=== PATIENT | female | born 1930 | race Caucasian/White ===

== ENCOUNTER 2018-01-10 04:48 | Inpatient (IN) | payer MEDICARE, BC ==
[2018-01-10] MEDS ORDERED: Ondansetron ODT 4 MG TAB ONE ×2 (05:26→11:42)
[2018-01-10] MEDS ORDERED: Morphine 4 MG/ML VIAL ONE ×2 (05:26→08:04)
[2018-01-10 05:51] LABS: #Lymphocytes 0.5 thou/uL (1.20-3.40); #Monocytes 0.3 thou/uL (0.11-0.59); #Neutrophils 7.3 thou/uL (1.40-6.50); %Basophils 0.2 % (0.0-1.0); %Lymphocytes 5.9 % (21.0-51.0); %Monocytes 3.7 % (0.0-10.0); %Neutrophils 90.1 % (42.0-75.0); Hemoglobin 12.9 g/dL (12.0-16.0); Mean Corpuscular Hemoglobin 33.3 pg (27.0-31.0); Mean Platelet Volume 7.9 fL (7.4-10.4); Platelet Count 243 thou/uL (130-400); RBC Distribution Width 12.1 % (11.5-14.5); Red Blood Cell (RBC) Count 3.87 mill/uL (4.20-5.40); White Blood Cell (WBC) Count 8.1 thou/uL (4.8-10.8)
[2018-01-10 06:15] LABS: ALT (SGPT) 10 U/L (8-55); AST (SGOT) 15 U/L (5-34); Albumin 4.1 g/dL (3.4-4.8); Alkaline Phosphatase 97 U/L (40-150); Anion Gap 16 mmol/L (10-20); BUN (Urea Nitrogen) 13 mg/dL (9.8-20.1); Bilirubin, Total 1.3 mg/dL (0.2-1.2); Calc. Creatinine Clearance 0 mL/min (70-130); Calcium 9.7 mg/dL (7.8-10.44); Carbon Dioxide 23 mmol/L (23-31); Chloride 104 mmol/L (98-107); Estimated GFR-MDRD 78; Globulin 3.1 g/dL (2.4-3.5); Glucose 172 mg/dL (83-110); Potassium 3.8 mmol/L (3.5-5.1); Protein, Total 7.2 g/dL (6.0-8.3); Sodium 139 mmol/L (136-145)
[2018-01-10] MEDS ORDERED: Ondansetron HCl/PF 4 MG/2 ML Vial ONE (06:59)
[2018-01-10] MEDS ORDERED: Glycopyrrolate 0.2 MG/ML 5 ML SYRINGE ONE (06:59)
[2018-01-10] MEDS ORDERED: Succinylcholine Chloride 20 MG/ML 10 ml SYRINGE FS ONE (06:59)
[2018-01-10] MEDS ORDERED: Lidocaine 1% PF 5 ML VIAL ONE (06:59)
[2018-01-10] MEDS ORDERED: PROPOFOL 200 MG/20 ML VIAL ONE (06:59)
[2018-01-10] MEDS ORDERED: Metoprolol Tartrate 5 MG/5 ML VIAL ONE (06:59)
[2018-01-10] MEDS ORDERED: ePHEDrine/0.9% NaCl/PF SYRINGE 50 mg/10 ml ONE (06:59)
[2018-01-10 07:50] LABS: CKMB 1.3 ng/mL (0-6.6); Troponin I Less than 0.010 ng/mL (< 0.028)
[2018-01-10] MEDS ORDERED: metroNIDAZOLE 500 MG/100 ML BAG ONE (08:04)
[2018-01-10 08:22] LABS: PTT 27.5 SEC (22.9-36.1)
[2018-01-10 08:23] LABS: INR-International Normal Ratio 1.1; Prothrombin Time 14.1 SEC (12.0-14.7)
[2018-01-10 09:22] LABS: Bilirubin Negative (Negative); Blood, Urine Negative (Negative); Clarity CLEAR (Clear); Glucose, Urine (Dipstick) Negative (Negative); Leukocyte Trace (Negative); Nitrite Positive (Negative); Protein, Urine (Dipstick) Negative (Neg-Trace); Specific Gravity, Urine 1.016 (1.002-1.036); Urobilinogen 0.2 mg/dL (0.2-1.0); pH, Urine 7.5 (5.0-9.0)
[2018-01-10 09:25] LABS: Bacteria/HPF 4+ HPF (None Seen); Hyaline Casts/LPF 0-3 HYALINE CAST LPF (0-3 Hyaline); Pathc Cast-AUWi Flag 0.14 (0-2.49); RBC/HPF 0-3 HPF (0-3); Squamous Epithelial None Seen HPF (0-3); WBC/HPF 0-3 HPF (0-3)
[2018-01-10 09:44] LABS: Lactic Acid 2.6 mmol/L (0.5-2.2)
[2018-01-10] MEDS ORDERED: Acetaminophen 1,000 MG in Premix Bag 1 BAG IVPB ONE (09:45)
[2018-01-10] MEDS ORDERED: Ketorolac Tromethamine 30 MG/ML VIAL ONE (09:53)
[2018-01-10] MEDS ORDERED: Levofloxacin 500 mg/D5W 100 ml Premix Bag ONE (11:41)
[2018-01-10] MEDS ORDERED: Scopolamine 1.5 mg/72 hour Patch ONE (11:41)
[2018-01-10] MEDS ORDERED: Metoclopramide HCl 10 MG/2 ML VIAL ONE (11:41)
[2018-01-10] MEDS ORDERED: Famotidine/PF 20 mg/2ml Vial ONE ×2 (11:42→13:59)
--- NOTE | 2018-01-10 11:47 | HP ---
HISTORY OF PRESENT ILLNESS: Candice Faustin is an 87-year-old female independently ambulatory with a wa lker, lives in [place], experienced acute onset of incarcerated left inguinal hernia with pain and nausea, presented to the emergency room by ambulance. She was evaluated there and a CAT scan obtaine d revealing an incarcerated left femoral hernia that could not be reduced. There is not a great amou nt of bowel dilatation associated with this, but a small amount of air fluid levels in the small waylon l and the incarcerated left femoral hernia. The plan is to reduce this robotically and repair roboti maureen, possible laparotomy, bowel resection as indicated. She understands risks and benefits and con sents. ALLERGIES: PENICILLIN. TOBACCO: None. ALCOHOL: None. MEDICATIONS: Synthroid, allergy medications. PAST SURGICAL HISTORY: Osteoarthritis, asthma, left total knee replacement, left shoulder surgery, l aparoscopic cholecystectomy, total abdominal hysterectomy, bilateral salpingo-oophorectomy. PAST MEDICAL HISTORY: Osteoarthritis, hypothyroidism treated medically. REVIEW OF SYSTEMS: Ten point noncontributory. The patient reports having had multiple colonoscopies that were normal in the past. She has had a cardiac stress test 10 years ago that was normal. She denies any cardiac history. PHYSICAL EXAMINATION: VITAL SIGNS: Blood pressure 183/93, 79, 20, 97.9 degrees. HEENT: Unremarkable. LUNGS: Clear to auscultation. CARDIAC: Regular rate and rhythm without murmur or gallop. ABDOMEN: Soft, nontender, nondistended. Left inguinal hernia that I cannot reduce. EXTREMITIES: Unremarkable. LABORATORY: White count 8, hemoglobin 12.9. Basic metabolic profile normal. ASSESSMENT AND PLAN: Incarcerated left inguinal/femoral hernia. Plan robotic repair, possible open repair, possibly using mesh. She understands risks and benefits and consents. She consents to lapar otomy, bowel resection as indicated.
--- NOTE | 2018-01-10 12:21 | CT ---
PRELIMINARY REPORT/[facility]/EMERGENTY AFTER-HOURS PROCEDURE CT Abdomen and Pelvis With Intravenous Contrast EXAM DATE/TIME: Exam ordered 01/10/2018 6:35 AM CLINICAL HISTORY: 87 years old, female; Pain; Abdominal pain; Acute; Prior surgery; Surgery date: 6+ months; Surgery ty pe: HX of clifford and hyst; Additional info: 87 yo f presents to ed with abd pain. Pt reports pain star teetee around midnight and is "all over" her abdomen. Pt reports no history of such pain. Pt reports lump on lower abdomen "just showed up". TECHNIQUE: Axial computed tomography images of the abdomen and pelvis with intravenous contrast. All CT scans at this facility use one or more dose reduction techniques, viz.: automated exposure control; ma/kV adj ustment per patient size (including targeted exams where dose is matched to indication; i.e. head); or iterative reconstruction technique. Coronal reformatted images were created and reviewed. CONTRAST: 100 mL of isovue 370 administered intravenously. COMPARISON: No relevant prior studies available. FINDINGS: Lung bases: There is subpleural atelectasis of the dependent portions of the lungs. ABDOMEN: Liver: There are no focal liver lesions identified. Gallbladder and bile ducts: There has been a cholecystectomy. No ductal dilation. Pancreas: The pancreas appears normal. No ductal dilation. Spleen: The spleen demonstrates punctate calcifications, consistent with remote granulomatous organis m exposure. Adrenals: The adrenal glands are normal. Kidneys and ureters: There are multiple simple renal cysts. No hydronephrosis. Stomach and bowel: There is a LEFT femoral hernia containing a 4 cm dilated loop of bowel. The stomac h is normal. Moderate diverticulosis is present in the sigmoid and descending colon. No definite evid ence of bowel obstruction. No mucosal thickening. PELVIS: Appendix: No findings to suggest acute appendicitis. Bladder: The bladder is moderately distended. Reproductive: The uterus is not visualized, and may be atrophic or surgically absent. ABDOMEN and PELVIS: Intraperitoneal space: Normal. No free air. No significant fluid collection. Bones/joints: Bones are osteopenic. No acute fracture. No dislocation. Soft tissues: See above. Vasculature: Normal. No abdominal aortic aneurysm. Lymph nodes: Normal. No enlarged lymph nodes. IMPRESSION: There is a LEFT femoral hernia containing a 4 cm dilated loop of bowel. Thank you for allowing us to participate in the care of your patient. Dictated and Authenticated by: Ayo Li MD 01/10/2018 7:47 AM Central Time ([place] & [place]) FINAL REPORT EMERGENT AFTER HOURS CT ABDOMEN AND PELVIS WITH IV CONTRAST: DATE: 01/10/18. HISTORY: Generalized abdominal pain. FINDINGS/IMPRESSION: 1. Left femoral hernia containing a single dilated fluid-filled loop of small bowel. No resultant b owel obstruction is seen at this time. There is mild stranding present adjacent to the hernia. 2. Post cholecystectomy changes. 3. Bilateral renal cysts, the largest cyst involving the left kidney measuring 8.5 cm. 4. Colonic diverticulosis. 5. Hysterectomy. 6. Evidence of prior granulomatous disease. 7. Small hiatal hernia. 8. Degenerative changes in the spine. 9. No CT evidence of appendicitis. 10. Findings are in agreement with the preliminary report by [facility]. POS: [facility]
[2018-01-10] MEDS ORDERED: Bupivacaine/Epinephrine 0.25% 30 ML VIAL ONE (13:52)
[2018-01-10] MEDS ORDERED: ISOVUE-370 76%-LOCM 1 ML ONE (13:55)
[2018-01-10] MEDS ORDERED: Fentanyl 250 MCG/5 ML VIAL ONE (13:59)
[2018-01-10] MEDS ORDERED: Fentanyl 100 MCG/2 ML VIAL ONE (13:59)
[2018-01-10] MEDS ORDERED: Ondansetron HCl/PF 4 MG/2 ML Vial IVP PRN (15:54)
[2018-01-10] MEDS ORDERED: SUGAMMADEX SODIUM 500 MG/5 ML VIAL ONE (16:02)
[2018-01-10] MEDS ORDERED: Morphine 4 MG/ML VIAL SLOW IVP PRN (16:07)
[2018-01-10] MEDS ORDERED: Dextrose 50% Abboject 50 ML SYRINGE SLOW IVP PRN (16:07)
[2018-01-10] MEDS ORDERED: Ondansetron ODT 4 MG TAB PO PRN ×3 (16:07→22:43)
[2018-01-10] MEDS ORDERED: Dextrose 5% in Water 1,000 ML IV PRN (16:07)
[2018-01-10] MEDS ORDERED: hydrALAZINE 20 MG/ML VIAL SLOW IVP PRN (16:07)
--- NOTE | 2018-01-10 17:53 | RAD ---
ABDOMEN ONE VIEW: HISTORY: NG tube placement. COMPARISON: None. FINDINGS: One view abdomen demonstrates a nasogastric tube in the left upper quadrant, presumed to be in the st omach. Bowel gas pattern is nonspecific. Scattered fecal material is noted. There appear to be stoney gical clips in the right upper quadrant due to a previous cholecystectomy. There is a catheter/tubin g material projecting over the right hemipelvis. IMPRESSION: Nasogastric tube with the distal tip in the stomach. POS: [facility]
[2018-01-10] MEDS: Acetaminophen 1,000 MG in Premix Bag 1 BAG IVPB SCH (18:30)
[2018-01-10] MEDS: Ketorolac Tromethamine 30 MG/ML VIAL IVP SCH (18:39)
[2018-01-10] MEDS: Lactated Ringer's 1,000 ML IV SCH (21:04)
[2018-01-10] MEDS: Enoxaparin Sodium 40 MG/0.4 ML SYRINGE SC SCH (21:50)
[2018-01-10 22:25] VITALS: BMI 36.6
[2018-01-10] MEDS ORDERED: Ondansetron ODT 8 MG TAB PO PRN (22:30)
[2018-01-10] MEDS ORDERED: Metoclopramide HCl 10 MG/2 ML VIAL IVP PRN (22:30)
[2018-01-10] MEDS ORDERED: Ondansetron ODT 8 MG TAB SL PRN (22:30)
[2018-01-11] MEDS: Ketorolac Tromethamine 30 MG/ML VIAL IVP SCH ×5 (00:50→23:06)
[2018-01-11] MEDS: Acetaminophen 1,000 MG in Premix Bag 1 BAG IVPB SCH ×4 (00:51→18:07)
[2018-01-11] MEDS: Lactated Ringer's 1,000 ML IV SCH ×4 (01:22→21:33)
--- NOTE | 2018-01-11 01:28 | OP ---
DATE OF PROCEDURE: 01/10/2018 PREOPERATIVE DIAGNOSIS: Incarcerated left femoral hernia. POSTOPERATIVE DIAGNOSIS: Strangulated left inguinal hernia with bowel obstruction. PROCEDURE: Robotic reduction of strangulated left femoral hernia with a Stratafix repair of left fem oral hernia defect and resection of small bowel segment with primary anastomosis. SURGEON: Dr. Alejandro Boothe. ANESTHESIA: General. Local 0.5% Marcaine with epinephrine 30 mL. FINANCE LEAD: Uvaldo Renteria M.D. PROCEDURE: The patient was taken to the operating room. Under general anesthesia, Jacobson catheter wa s placed and abdomen prepared with ChloraPrep, draped in routine fashion. Local anesthetic infiltrat ed into the skin and subcutaneous tissue about each port sites. Supraumbilical incision made. Pneum operitoneum to 15 mmHg obtained with the Veress needle, replacing it with an 11 port. Video laparosc ope inserted. Right lateral and left lateral abdominal incision was made and an 8 ports placed. Oscar ot was docked and robotic endoscopic dissection carried out identifying distended small bowel loops w ith incarcerated left femoral hernia with small bowel. This was gently reduced, dissected free, taki ng down peritoneal attachments. Gently reducing the hernia, no delay in strangulated segment of smal l bowel about 6 cm. The peritoneum dissected free from the femoral hernia defect, which was closed w ith Stratafix 2-0 Suture. Once this was closed, we then made a small incision infraumbilical midline , carried down through the skin and subcutaneous tissue, midline fascia, entering abdominal cavity sh arply. The Aashish retractor was used as a strangulated small bowel segment brought out into the woun d and mesentery divided between clamps and ligated with 3-0 silk ties and small bowel resection under taken with primary anastomosis with 2 fires of the Endo-MERRY 75 blue load stapler. Strangulated segme nt of small bowel resected and submitted to pathology. Good anastomosis was palpated and interrupted Lembert suture of 3-0 silk placed and mesenteric defect closed with 3-0 silk suture evacuated. As sponge and needle counts were correct. retractor was removed, our gloves were changed and fascia approximated with continuous suture of #1 PDS. Skin and subcutaneous tissues irrigated. Sub cutaneous tissues approximated loosely with 3-0 Vicryl, and the skin with subdermal 4-0 Vicryl, and s kin incision closed with 4-0 Vicryl subdermal. Prevena dressing applied and Dermabond applied to the robotic incision.
[2018-01-11 06:05] LABS: #Lymphocytes 1.4 thou/uL (1.20-3.40); #Monocytes 0.9 thou/uL (0.11-0.59); %Basophils 0.4 % (0.0-1.0); %Eosinophils 0.1 % (0.0-10.0); %Lymphocytes 14.8 % (21.0-51.0); %Monocytes 9.9 % (0.0-10.0); %Neutrophils 74.9 % (42.0-75.0); Hemoglobin 11.5 g/dL (12.0-16.0); Mean Corpuscular HGB CONC 33.7 g/dL (32.0-36.0); Mean Corpuscular Hemoglobin 34.4 pg (27.0-31.0); Mean Platelet Volume 8.5 fL (7.4-10.4); Platelet Count 201 thou/uL (130-400); RBC Distribution Width 12.3 % (11.5-14.5); Red Blood Cell (RBC) Count 3.35 mill/uL (4.20-5.40); White Blood Cell (WBC) Count 9.3 thou/uL (4.8-10.8)
[2018-01-11 06:15] LABS: Anion Gap 9 mmol/L (10-20); BUN (Urea Nitrogen) 8 mg/dL (9.8-20.1); Calc. Creatinine Clearance 90 mL/min (70-130); Calcium 8.9 mg/dL (7.8-10.44); Carbon Dioxide 30 mmol/L (23-31); Chloride 101 mmol/L (98-107); Estimated GFR-MDRD 89; Glucose 91 mg/dL (83-110); Potassium 3.5 mmol/L (3.5-5.1); Sodium 136 mmol/L (136-145)
[2018-01-11] MEDS: Pantoprazole 40 MG VIAL IVP SCH (09:02)
[2018-01-11] MEDS ORDERED: Vicks VapoRub 50 gm Jar TOP PRN (14:21)
[2018-01-11] MEDS: Enoxaparin Sodium 40 MG/0.4 ML SYRINGE SC SCH (19:53)
--- NOTE | 2018-01-11 20:25 | PRG ---
DATE OF SERVICE: 01/11/2018 SUBJECTIVE: The patient is doing well. She has removed her NG tube and we have left it out. She is not having nausea or vomiting. She has not had flatus. OBJECTIVE: VITAL SIGNS: 98.1 degrees, 89, 144/89. LUNGS: Clear to auscultation. CARDIAC: Regular rate and rhythm without murmur or gallop. ABDOMEN: Soft. Mild postoperative tenderness. Bowel sounds present. LABORATORY DATA: White count 9, hemoglobin 11.5. Basic metabolic profile normal. ASSESSMENT AND PLAN: Doing well after strangulated femoral hernia repair robotically and bowel resec tion. We will remove NG tube, start liquids, have asked her to move slowly, advance to full liquids tomorrow. Remove Jacobson and NG tube.
[2018-01-12] MEDS: Ketorolac Tromethamine 30 MG/ML VIAL IVP SCH ×4 (05:02→23:08)
[2018-01-12] MEDS ORDERED: traMADol HCl 50 MG TAB PO PRN ×2 (08:08)
[2018-01-12] MEDS ORDERED: Montelukast Sodium 4 mg Chewable Tablet PO SCH (09:00)
[2018-01-12] MEDS ORDERED: Acetaminophen 500 MG TAB PO SCH (09:00)
[2018-01-12] MEDS: Polyethylene Glycol 3350 17 GM Packet PO SCH (09:08)
[2018-01-12] MEDS: Pantoprazole 40 MG VIAL IVP SCH (09:08)
[2018-01-12] MEDS: Lactated Ringer's 1,000 ML IV SCH ×3 (12:37→22:00)
[2018-01-12] MEDS ORDERED: Acetaminophen 500 MG TAB PO PRN (13:21)
--- NOTE | 2018-01-12 16:43 | PRG ---
DATE OF SERVICE: 01/12/2018 SUBJECTIVE: Ms. Faustin is doing well today. She denies any nausea or vomiting. She has passed flatus . OBJECTIVE: VITAL SIGNS: 98.7 degrees, 80, 127/73. She do not want solid food. LUNGS: Clear to auscultation. CARDIAC: Regular rate and rhythm without murmur or gallop. ABDOMEN: Soft, bowel sounds present. Prevena wound VAC present. EXTREMITIES: Unremarkable. LABORATORY DATA: None. Basic metabolic profile: None. ASSESSMENT AND PLAN: The patient is doing well postoperatively. We will advance her diet to a soft diet. We will change her to oral medications and resume her home medications. Anticipate discharge home tomorrow to [facility].
[2018-01-12] MEDS: Enoxaparin Sodium 40 MG/0.4 ML SYRINGE SC SCH (20:26)
[2018-01-13] MEDS: Ketorolac Tromethamine 30 MG/ML VIAL IVP SCH (05:57)
[2018-01-13] MEDS ORDERED: Levothyroxine Sodium 100 MCG TAB PO SCH (06:00)
[2018-01-13] MEDS: Polyethylene Glycol 3350 17 GM Packet PO SCH (08:16)
[2018-01-13] MEDS: Pantoprazole 40 MG VIAL IVP SCH (08:16)
--- NOTE | 2018-01-13 11:02 | PRG ---
DATE OF SERVICE: 01/13/2018 Ms. Faustin is doing well. She is tolerating her diet. OBJECTIVE: LUNGS: Clear to auscultation. CARDIAC: Regular rate and rhythm without murmur or gallop. ABDOMEN: Soft, nontender, good bowel sounds, bowel movements occurred. VITAL SIGNS: Temperature 97.3 degrees, 76, 160/87. LABORATORIES: None. ASSESSMENT AND PLAN: Status post robotic repair of incarcerated left femoral hernia with small bowel resection through a mini laparotomy. She is doing well. She is discharged home with Tylenol, ibuprofen for pain. She is sent for retirement unit. She will resume her home medications.
--- NOTE | 2018-01-13 11:16 | DIS ---
DISCHARGE DIAGNOSES: Strangulated left femoral hernia. PROCEDURES THIS HOSPITALIZATION: Robotic left femoral hernia repair with laparotomy for segmental sm all bowel resection. ALLERGIES: PENICILLIN. Osteoarthritis, hypothyroidism. DISCHARGE MEDICATIONS: Synthroid, Tylenol, ibuprofen for pain as needed. FOLLOWUP: Follow up in my office in 2-3 weeks. HISTORY: An 87-year-old female independently ambulatory with a walker, lives in [place]. She expe rienced acute onset incarcerated left femoral hernia, presented to the emergency room. CAT scan reve aled a femoral hernia. She was hospitalized, taken to the operating room and underwent the above wei cribed procedure and did well postoperatively and was discharged home and follow up in my office in 2 -3 weeks. Diet and activity as tolerated.
[2018-01-13 11:49] VITALS: BP 162/88; TEMP 99.7
[2018-01-16] MEDS ORDERED: Ibuprofen 600 MG TAB PO PRN
== END 2018-01-13 13:06 | DRG 329 ==
LOC: ERS 04:48 → SDC 10:49 → SDC/OP 10:50 → SJJU 17:07
PROVIDERS: ADMIT Specialist; ATTEND Specialist
PROC: 0DB80ZZ Excision of Small Intestine, Open Approach (ICD-10-PCS; principal; 2018-01-10)
PROC: 0YQ Anatomical Regions, Lower Extremities, Repair (ICD-10-PCS; 2018-01-10)
DX: K41.30 Unilateral femoral hernia, with obstruction, without gangrene, not specified as recurrent (principal); K56.2 Volvulus; M19.90 Unspecified osteoarthritis, unspecified site; E03.9 Hypothyroidism, unspecified; Z96.652 Presence of left artificial knee joint; Z90.49 Acquired absence of other specified parts of digestive tract; Z90.710 Acquired absence of both cervix and uterus
CPT/HCPCS: 36415; 74018; 74177; 80048; 80053; 81003; 81015; 82553; 83605; 84484; 85025; 85610; 85730; 87040; 87077; 87086; 87186; 88307; 93005; 96361; 96365; 96366; 96372; 96374; 96375; C9113; G8978-GP-CL; G8979-GP-CL; G8980-GP-CL; J0131; J1650; J1885; J1956; J2001; J2270; J2405; J2704; J2765; J3010; Q0162; S0028